=== PATIENT | female | born 1935 ===

== ENCOUNTER 2024-12-11 15:34 | Emergency (ER) | payer MEDICARE, OTHER ==
[~2024-12-11] VITALS: Ht 162.6 cm; Wt 54.5 kg
[2024-12-11 15:40] VITALS: BP 136/84; PULSE 76; RESP 18; TEMP 98.1; O2SAT 99
[2024-12-11] MEDS ORDERED: MIDO5TAB5 PO (15:45)
[2024-12-11] MEDS ORDERED: NORT10CA2 PO (15:45)
[2024-12-11] MEDS ORDERED: ROSU40TA88 PO (15:45)
[2024-12-11] MEDS ORDERED: ALBU18HF12 IH (15:45)
[2024-12-11] MEDS ORDERED: PHEN-948 PO (15:45)
[2024-12-11] MEDS ORDERED: DOCU100C33 PO (15:45)
[2024-12-11] MEDS ORDERED: CLOP75TA32 PO (15:45)
[2024-12-11 16:09] LABS: APPEARANCE,URINE HAZY (CLEAR); GLUCOSE, URINE (UA) NEGATIVE (NEGATIVE); KETONES,URINE NEGATIVE (NEGATIVE); LEUKOCYTE ESTERASE ,URINE NEGATIVE (NEGATIVE); NITRATE,URINE POSITIVE (NEGATIVE); OCCULT BLOOD,URINE NEGATIVE (NEGATIVE); PROTEIN,URINE 30-70 mg/dL (NEGATIVE)
[2024-12-11 16:10] LABS: BILIRUBIN,URINE MODERATE (NEGATIVE); COLOR,URINE DARK ORANGE (YELLOW)
[2024-12-11 16:50] LABS: RBC,URINE 0-2 /HPF (0-2); WBC,URINE 0-2 /HPF (0-5)
[2024-12-11 16:51] LABS: BACTERIA,URINE Moderate /HPF (None Seen); SQUAMOUS EPITHELIAL CELL,UR Few /LPF (None Seen)
[2024-12-11 16:52] LABS: FINE GRANULAR CASTS,URINE 0-2 /LPF (None Seen); HYALINE CASTS, URINE 0-2 /LPF (None Seen); MUCUS,URINE Rare LPF (None Seen)
== END 2024-12-11 17:12 | disposition left against medical advice (07) ==
LOC: EMS 15:35 → EDBD 15:35 → EMS 17:12
DX: R10.30 Lower abdominal pain, unspecified (principal); R30.0 Dysuria; Z53.21 Procedure and treatment not carried out due to patient leaving prior to being seen by health care provider
CPT/HCPCS: 81001; 87086